=== PATIENT | female | born 1955 | race Caucasian/White ===

== ENCOUNTER 2018-01-16 06:49 | Day surgery (SDC) | payer OTHER ==
[2018-01-08 16:19] VITALS: BMI 40.3
[2018-01-16] MEDS ORDERED: MIDAZOLAM HCL 2 MG/2 ML SINGLE DOSE VIAL ONE (08:10)
[2018-01-16] MEDS ORDERED: ROPIVACAINE HCL 0.5% 30ML VIAL ONE (08:10)
[2018-01-16] MEDS ORDERED: DEXAMETHASONE SOD PHOSPHATE/PF 10 MG/ML SDV ONE (08:10)
[2018-01-16] MEDS ORDERED: PROPOFOL 20 ML ONE ×2 (09:19→10:01)
[2018-01-16] MEDS ORDERED: CLINDAMYCIN PHOSPHATE 600 MG/4 ML VIAL ONE (09:21)
[2018-01-16] MEDS ORDERED: LABETALOL HCL 5 MG/1 ML (100MG/20 ML VIAL) ONE (10:12)
[2018-01-16 10:49] VITALS: TEMP 98.1
[2018-01-16 11:56] VITALS: BP 158/95; PULSE 86
--- NOTE | 2018-01-16 16:37 | OP ---
DATE OF OPERATION: 01/16/2018 LOCATION: [facility] SURGEON: Abraham Castro MD MUSIC LEADER: DIANNE Fenton POSTOPERATIVE DIAGNOSES: 1. Left shoulder rotator cuff tear. 2. Left shoulder adhesions. 3. Left shoulder impingement syndrome. 4. Left shoulder glenohumeral synovitis. 5. Left shoulder acromioclavicular degenerative joint disease. 6. Left shoulder superior labral tear and anterior to posterior synovitis. POSTOPERATIVE DIAGNOSES: 1. Left shoulder rotator cuff tear. 2. Left shoulder adhesions. 3. Left shoulder impingement syndrome. 4. Left shoulder glenohumeral synovitis. 5. Left shoulder acromioclavicular degenerative joint disease. 6. Left shoulder superior labral tear and anterior to posterior synovitis. PROCEDURE: 1. Left shoulder arthroscopy with arthroscopic rotator cuff repair. CPT code 78101. 2. Left shoulder arthroscopy with subacromial decompression. CPT code 90199. 3. Left shoulder arthroscopy with release of adhesions. CPT code 68054. 4. Left shoulder arthroscopy with resection of distal clavicle and acromioclavicular joint. CPT code 62108. 5. Left shoulder arthroscopy with debridement. CPT code 31270. FINDINGS: 1. Glenohumeral synovitis. 2. Superior labral tear anterior to posterior type 1. 3. Partial biceps tear. 4. Extensive synovitis consistent with adhesions and adhesive capsulitis. 5. Full-thickness supraspinatus and rotator cuff tear. 6. Partial biceps tear 10%. 7. Type 2 to 3 acromion with anterior lateral sprain. 8. Thickened scars to subacromial space with adhesions. 9. Inferior-superior clavicle and acromioclavicular joint disease. REPAIR TYPE: Two mattress sutures were placed into the supraspinatus to secure it to a bleeding bone bed using Mirtha anchors. PROCEDURE: Informed consent was obtained. The patient was taken to the operating room where the upper extremity was prepped and draped in a sterile fashion. The shoulder was manipulated for a full range of motion. Posterior incision portal was made and directed to glenohumeral joint. Under direct visualization, an anterior incision and portal was made. Extensive synovitis, as well as chondral injuries throughout the glenohumeral joint were debrided and removed. Extensive inflammation with adhesions along the glenohumeral joint were debrided and the Bovie cautery was used diffusely to diminish the synovitis. Any identified labral injuries, including superior labral tear, anterior and posterior, and anterior labrum torn portions were removed as well. The rotator cuff was visualized and noted to have a full-thickness tear. The edges were debrided. The posterior incision portal was redirected to the subacromial space where a lateral incision portal was made. Excessive and thickened scar tissue noted throughout the subacromial space, including bursal and scar tissue, were removed. The type 2 acromion was converted into a flattened type 1 using a bur for subacromial decompression. The distal inferior spur at the distal clavicle was also debrided with the use of an accessory portal in the acromioclavicular joint. The edges of the rotator cuff were identified. Sutures were placed into the rotator cuff and secured using anchors through the greater tuberosity. Prior to securing, a bleeding bed was made using a small bur, creating a bleeding surface of the rotator cuff insertion. The shoulder was then drained, a single suture was placed in all portals, a sterile dressing was placed and the patient was transferred to the recovery room without complication. ABRAHAM CASTRO M.D. [id number]
--- NOTE | 2018-01-23 14:24 | PATH ---
Surgical Pathology Report Patient Name: JANELLE THAPA Med. Rec. #: [id number] /Age/Gender: 1955 (Age: 62) / F Account: [id number] Location: [facility] Taken: 01/16/2018 Received: 01/16/2018 Reported: 01/20/2018 Physicians: Abraham Dupont M.D. 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 FRAGMENTS OF BONE, CARTILAGE, SKELETAL MUSCLE, DENSE FIBROCONNECTIVE AND FIBROADIPOSE TISSUE. Comment: Although these findings are non-specific, dense lymphoplasmacytic infiltrate involving synovium with reactive synovial hyperplasia may be seen in association with rheumatoid arthritis. Correlation with clinical/radiologic and serologic findings is suggested. Electronically Signed Tatiana Storey M.D. Gross Description Received in formalin, labeled "left shoulder shavings," is a 4.0 x 4.0 x 0.4 cm. aggregate of hickman-yellow soft tissue fragments. A sales and merchandising representative portion is submitted in one cassette. 01/19/201801/19/2018
== END 2018-01-16 11:50 | disposition home or self-care (01) ==
LOC: FASU 06:49
PROVIDERS: ATTEND Orthopaedic Surgery
PROC: 0RNK4ZZ Release Left Shoulder Joint, Percutaneous Endoscopic Approach (ICD-10-PCS; 2018-01-16)
PROC: 0PBB4ZZ Excision of Left Clavicle, Percutaneous Endoscopic Approach (ICD-10-PCS; 2018-01-16)
PROC: 0RBK4ZZ Excision of Left Shoulder Joint, Percutaneous Endoscopic Approach (ICD-10-PCS; 2018-01-16)
PROC: 0LQ24ZZ Repair Left Shoulder Tendon, Percutaneous Endoscopic Approach (ICD-10-PCS; principal; 2018-01-16 09:42)
DX: M75.102 Unspecified rotator cuff tear or rupture of left shoulder, not specified as traumatic (principal); M75.02 Adhesive capsulitis of left shoulder; M75.42 Impingement syndrome of left shoulder; M65.812 Other synovitis and tenosynovitis, left shoulder; M19.012 Primary osteoarthritis, left shoulder; M24.112 Other articular cartilage disorders, left shoulder
CPT/HCPCS: 88304-TC